=== PATIENT | female | born 1970 | race Caucasian/White ===

== ENCOUNTER → 2022-07-11 12:58 | Outpatient (BNVA) | payer OTHER, BC, SELFPAY | PROVIDERS: Visit Provider Nurse Practitioner Family | DX: S43.402A Unspecified sprain of left shoulder joint, initial encounter (principal); W19.XXXA Unspecified fall, initial encounter; Y99.0 Civilian activity done for income or pay | CPT/HCPCS: 73030 ==

== ENCOUNTER → 2022-07-25 15:44 | Outpatient (BNVA) | payer OTHER, SELFPAY | PROVIDERS: Visit Provider Specialist | DX: Y99.0 Civilian activity done for income or pay (principal); W19.XXXA Unspecified fall, initial encounter; S49.92XA Unspecified injury of left shoulder and upper arm, initial encounter | CPT/HCPCS: 73030 ==

== ENCOUNTER 2022-08-11 15:19 | Outpatient (CLI) | payer OTHER, SELFPAY ==
--- NOTE | 2022-08-11 15:15 | MR_ITS ---
WS: [id number] EXAMINATION: MR shoulder LT wo con* [id number] ORDER DATE: 08/11/2022 3:27 PM COMPARISON: None. HISTORY: shoulder injury CONTRAST: None. TECHNIQUE: Axial T2 STAR, coronal proton density fat sat, sagittal T2 fat sat, sagittal proton densit y fat sat, axial proton density fat sat, coronal T2 fat sat, and coronal T1 performed. FINDINGS: Mild degenerative arthritis AC joint with mild edema. Trace subacromial subdeltoid fluid. Mild narrow ing of the subacromial space. Distal supraspinatus and infraspinatus. Intact. Normal teres minor and subscapularis. No high-grade rotator cuff tears. Normal biceps tendon in the bicipital groove. Intra-articular biceps tendon appears intact. Normal josé miguel ne marrow signal in the glenoid and humerus. Biceps labral anchor appears intact. Glenoid labrum appe ars grossly intact. MR/MR shoulder LT wo con* [id number] IMPRESSION: 1. Mild degenerative arthritis AC joint with mild edema. 2. Trace subacromial subdeltoid fluid. 3. Rotator cuff is intact. 4. Normal biceps tendon in the bicipital groove. 5. No other acute findings.
== END 2022-08-11 15:20 | disposition home or self-care (01) ==
LOC: RAD 15:24
PROVIDERS: Visit Provider Specialist
DX: S49.92XA Unspecified injury of left shoulder and upper arm, initial encounter (principal); X58.XXXA Exposure to other specified factors, initial encounter; M19.012 Primary osteoarthritis, left shoulder; R60.0 Localized edema
CPT/HCPCS: 73221

== ENCOUNTER → 2022-08-30 08:40 | Outpatient (BNVA) | payer BC, SELFPAY | PROVIDERS: Visit Provider Podiatrist Foot & Ankle Surgery | DX: M79.671 Pain in right foot (principal); M72.2 Plantar fascial fibromatosis | CPT/HCPCS: 73630 ==

== ENCOUNTER 2022-09-16 09:45 | Outpatient (RCR) | payer OTHER, SELFPAY | END 2022-10-10 23:59 | disposition home or self-care (01) | LOC: SPT 09:45 | PROVIDERS: PCP Specialist; Visit Provider Specialist | DX: M75.02 Adhesive capsulitis of left shoulder (principal) | CPT/HCPCS: 97110; 97161 ==

== ENCOUNTER 2022-10-11 06:00 | Outpatient (RCR) | payer OTHER, SELFPAY | END 2022-11-10 23:59 | disposition home or self-care (01) | LOC: SPT 06:00 | PROVIDERS: PCP Family Medicine; Visit Provider Specialist | DX: M75.02 Adhesive capsulitis of left shoulder (principal) | CPT/HCPCS: 97110 ==

== ENCOUNTER 2022-11-11 06:00 | Outpatient (RCR) | payer OTHER, SELFPAY | END 2022-12-10 23:59 | disposition home or self-care (01) | LOC: SPT 06:00 | PROVIDERS: PCP Family Medicine; Visit Provider Specialist | DX: M75.02 Adhesive capsulitis of left shoulder (principal) | CPT/HCPCS: 97033; 97110 ==

== ENCOUNTER 2022-12-30 07:51 | Day surgery (SDC) | payer BC, SELFPAY ==
[2022-12-30 08:06] VITALS: BP 137/95; PULSE 72; RESP 16; TEMP 36.4; O2SAT 99; BMI 29.2
--- NOTE | 2022-12-30 08:18 | P.ANESASSM_ITS ---
Pre-Anesthetic Assessment Height/Weight: Height 1.6 m Weight 74.843 kg Temp Pulse Resp BP Pulse Ox O2 Del Method 97.5 F L 72 16 137/95 99 Room Air 12/30/22 08:06 12/30/22 08:06 12/30/22 08:06 12/30/22 08:06 12/30/22 08:06 12/30/22 08:06 Operation Date: 12/30/22 09:00 Proposed Procedures p 20658 egd with balloon dilation R13.10(Not Applicable) - Hossein Hernadez DO Familial anesthetic complications: none Was Beta Yohan taken within 24 hours: N/A Was Clonidine taken within 24 hours: N/A Last intake: Intake Last Liquid Date 12/29/22 Last Liquid Time 22:30 Last Solid Date 12/28/22 Last Solid Time 18:00 Social No alcohol and No tobacco Exam alert, oriented x 3, clear to auscultation bilaterally and regular rate & rhythm Airway Mallampati: Class II Dentition: full CV/HEM Hypertension GI Gastroesophageal Reflux Disease Anesthetic Plan ASA status: 2 Anesthesia: MAC Risk of > 500 ml blood loss (7ml/kg in children): No Medications/Allergies Home Medications Medication Instructions Recorded Confirmed Last Taken Type escitalopram oxalate 10 mg tablet 10 mg PO DAILY 07/25/22 12/30/22 12/29/22 H istory (Lexapro) albuterol sulfate 90 mcg/actuation 2 puff inhalation Q4H PRN 12/06/22 12/30/22 3 Weeks Ago History aerosol inhaler shortness of breath or wheezing ~12/07/22 epinephrine 0.3 mg/0.3 mL 0.3 ml IM ONCE PRN anaphylaxis 12/06/22 12/30/22 Unknown History injection, auto-injector losartan 50 mg-hydrochlorothiazide 0.5 tab PO DAILY 12/06/22 12/30/22 12/29/22 History 12.5 mg tablet valacyclovir 1 gram tablet 1,000 mg PO TID PRN shingles 12/06/22 12/30/22 Unknown History pantoprazole 40 mg tablet,delayed 40 mg PO BID 6 weeks #84 tabs 12/14/22 12/30/22 12/29/22 Rx release (Protonix) Allergies Allergy/AdvReac Type Severity Reaction Status Date / Time iodine Allergy ADR-Itching Verified 12/14/22 12:02 NSAIDS (Non-Steroidal Allergy angioedema Verified 12/14/22 12:02 Anti-Inflamma bee stings Allergy Unknown Uncoded 12/14/22 12:02 shellfish Allergy Unknown Uncoded 12/14/22 12:02 [facility] Anesthesia Medical History Angioedema nsaid induced Anxiety History of shingles Hypertension Surgical History History of breast augmentation History of endometrial ablation History of meniscectomy of right knee History of nasal septoplasty History of repair of anterior cruciate ligament of right knee Family History Mother Suicide Father No problems noted. Denies family history of Diabetes CAD (coronary artery disease) Cancer Hypertension Social History Smoking and tobacco/nicotine status: former use of tobacco/nicotine Alcohol intake: current Alcohol intake frequency: holidays/special occasions only Alcohol type: wine Substance/Drug Use: never Household members: spouse Housing: House Marital status: Number of children: 1 Number of grandchildren: 2 Highest education level completed: Associate Degree: Academic Program service: No Current occupational status: employed Current occupation: [employer] Current occupational exposures/hazards: No Pets and animals: Yes Sexually active: Yes Do you think of yourself as: Straight/Heterosexual Current gender identity: Female Special clemente needs: No Agree to transfusion: Yes Data Anesthesia Cardiac Studies: No Data to Display
[2022-12-30] MEDS: sodium chloride 0.9% 1,000 ML 30 ML IV (08:20)
--- NOTE | 2022-12-30 09:23 | W.PM.OPSUD ---
Surgery/Procedure H&P Update DATE OF PROCEDURE: December 30, 2022 DATE H&P PERFORMED: 12/14/22 H&P UPDATE INFORMATION: I have reviewed H&P completed within last 30 days, I have examined patient prior to procedure and No changes to prior documentation PLANNED PROCEDURE: Operation Date: 12/30/22 09:00 Proposed Procedures p 51903 egd with balloon dilation R13.10(Not Applicable) - Hossein Hernadez, DO
[2022-12-30 09:37] VITALS: BP 106/72; PULSE 77; RESP 18; TEMP 36.3; O2SAT 91
[2022-12-30 09:55] VITALS: BP 112/73; PULSE 62; RESP 18; O2SAT 100
--- NOTE | 2022-12-30 09:57 | ANE.PACU2 ---
Inpatient post-anesthesia follow up: Airway intact: Yes Vital signs: Temperature 97.4 F Pulse Rate 77 Respiratory Rate 18 Blood Pressure 106/72 Pulse Oximetry 91 Oxygen Delivery Me thod Room Air Oxygen Flow Rate Fraction of Inspir ed Oxygen Hydration adequate: Yes Nausea and vomiting: No Pain level: 1 Mental status: Baseline
== END 2022-12-30 10:20 | disposition home or self-care (01) ==
PROVIDERS: PCP Family Medicine; Visit Provider Surgery
DX: R13.10 Dysphagia, unspecified (principal); K22.2 Esophageal obstruction; K29.50 Unspecified chronic gastritis without bleeding; I10 Essential (primary) hypertension; K21.9 Gastro-esophageal reflux disease without esophagitis; Z87.891 Personal history of nicotine dependence
CPT/HCPCS: 43239; 43249; 88305; 88342; J2704; J7030

== ENCOUNTER 2023-01-11 12:56 | Outpatient (CLI) | payer OTHER, SELFPAY ==
--- NOTE | 2023-01-11 13:00 | IR_ITS ---
WS: [id number] LEFT SHOULDER ARTHROGRAM UNDER FLUOROSCOPY. PRIOR TO MRI EVALUATION. HISTORY: check for ligament damage COMPARISON: None available. FLUOROSCOPY TIME: 1min [id number] # of spot films: 2 Procedure, risks and complications were explained to the patient. Consent has been obtained. Under fluoroscopic guidance the skin is marked over the medial superior third of the humeral head, cl eansed with ChloraPrep and anesthetized with lidocaine. 22-gauge spinal needle is inserted to the cor merrill of the humeral head. Test injection with Omnipaque reveals the needle is appropriately positioned in the joint. A mixture of 10 cc sterile saline, 5 cc Omnipaque and 0.1 mmol gadolinium are injected under fluoroscopic guidance. Patient tolerated the joint distention well. No complications. IMPRESSION: Uncomplicated LEFT shoulder joint injection prior to MRI.
--- NOTE | 2023-01-11 13:01 | MR_ITS ---
WS: [id number] MRI LEFT SHOULDER ARTHROGRAM HISTORY: left shoulder pain COMPARISON: 08/11/2022 TECHNIQUE: Postcontrast imaging in 3 planes submitted after injection of gadolinium. T1 fat saturatio n postcontrast imaging. Contrast extravasates from the joint capsule during injection. Only 13 cc of contrast are injected. T here is obvious extravasation from the joint capsule. The axillary recess is a small caliber which is consistent with adhesive capsulitis. There is also abnormal signal in the superior labrum. Abnormal signal extends along the anterior labrum consistent with a torn superior anterior labrum. There is mild laxity of the middle glenohumeral ligament and the subscapularis tendon. No loose adonis s or fractures. IMPRESSION: 1. Small caliber axillary pouch consistent with adhesive capsulitis. Contrast extravasates from the s mall axillary recess along the subscapularis muscle. 2. Abnormal signal superior anterior labrum consistent with a labral tear.
== END 2023-01-11 12:57 | disposition home or self-care (01) ==
LOC: RAD 12:56
PROVIDERS: PCP Family Medicine; Visit Provider Specialist
DX: M75.02 Adhesive capsulitis of left shoulder (principal); R93.7 Abnormal findings on diagnostic imaging of other parts of musculoskeletal system
CPT/HCPCS: 23350; 73222; 77002; A9577; Q9966

== ENCOUNTER 2023-06-26 14:01 | Outpatient (CLI) | payer BC, SELFPAY ==
--- NOTE | 2023-06-26 14:00 | MM_ITS ---
WS: [id number] BILATERAL 3D TOMOSYNTHESIS DIGITAL DIAGNOSTIC MAMMOGRAPHY WITH CAD CLINICAL INFORMATION: breast lump present for 5 months. painful at times HISTORY: History of LEFT saline implant drainage January 2023. Prior rupture of the RIGHT implant. LEFT breast lump. COMPARISON: 2019 TECHNIQUE: Bilateral CC, MLO, and ML views. FINDINGS: The breasts are composed of heterogeneous fibroglandular density, which can limit the detection of sm all underlying mass lesions. A few incidental punctate calcifications. Interval deflation of the LEFT breast implant. Palpable marker LEFT breast in the area of concern with normal underlying parenchymal tissue. This is near the deflated breast implant. Ultrasound is pending. Slight tenting of the underlying breast imp lant ULTRASOUND BREAST LEFT TECHNIQUE: Ultrasound left breast focused area of concern. CLINICAL INFORMATION: breast lump present for 5 months. painful at times FINDINGS: Deflated LEFT breast implant is visualized. History of LEFT breast implant drainage. Ultrasound in th e area of palpable concern 6 o'clock position 7 cm from the nipple demonstrates normal underlying parenchymal tissue. No cystic or solid lesions. Deflated breast implant is just deep to this area. Slight tenting of the underlying breast implant as seen on the mammogram. IMPRESSION: MM/[place] [id number] BI-RADS: 2-Benign FOLLOW UP: 1 Year Follow-up Recommend return to annual screening mammography.
--- NOTE | 2023-06-26 14:30 | US_ITS ---
WS: [id number] BILATERAL 3D TOMOSYNTHESIS DIGITAL DIAGNOSTIC MAMMOGRAPHY WITH CAD CLINICAL INFORMATION: breast lump present for 5 months. painful at times HISTORY: History of LEFT saline implant drainage January 2023. Prior rupture of the RIGHT implant. LEFT breast lump. COMPARISON: 2019 TECHNIQUE: Bilateral CC, MLO, and ML views. FINDINGS: The breasts are composed of heterogeneous fibroglandular density, which can limit the detection of sm all underlying mass lesions. A few incidental punctate calcifications. Interval deflation of the LEFT breast implant. Palpable marker LEFT breast in the area of concern with normal underlying parenchymal tissue. This is near the deflated breast implant. Ultrasound is pending. Slight tenting of the underlying breast imp lant ULTRASOUND BREAST LEFT TECHNIQUE: Ultrasound left breast focused area of concern. CLINICAL INFORMATION: breast lump present for 5 months. painful at times FINDINGS: Deflated LEFT breast implant is visualized. History of LEFT breast implant drainage. Ultrasound in th e area of palpable concern 6 o'clock position 7 cm from the nipple demonstrates normal underlying parenchymal tissue. No cystic or solid lesions. Deflated breast implant is just deep to this area. Slight tenting of the underlying breast implant as seen on the mammogram. IMPRESSION: US/US breast LT limited* [id number] BI-RADS: 2-Benign FOLLOW UP: 1 Year Follow-up Recommend return to annual screening mammography.
== END 2023-06-26 14:02 | disposition home or self-care (01) ==
LOC: RAD 14:01
PROVIDERS: PCP Family Medicine; Visit Provider Clinical Nurse Specialist Adult Health
DX: N63.23 Unspecified lump in the left breast, lower outer quadrant (principal)
CPT/HCPCS: 76642; 77062; G0279

== ENCOUNTER → 2023-11-15 13:45 | Outpatient (BNVA) | payer BC, SELFPAY | PROVIDERS: PCP Family Medicine; Visit Provider Family Medicine | DX: Z00.00 Encounter for general adult medical examination without abnormal findings (principal) | CPT/HCPCS: 80053; 80061; 83036; 85025 ==

== ENCOUNTER 2025-01-14 08:40 | Outpatient (CLI) | payer BC, SELFPAY ==
--- NOTE | 2025-01-14 08:46 | MM_ITS ---
WS: [id number] BILATERAL 3D TOMOSYNTHESIS DIGITAL SCREENING MAMMOGRAPHY WITH CAD CLINICAL INFORMATION: SCREENING HISTORY: Screening mammogram. No current complaints. COMPARISON: 2023 TECHNIQUE: Bilateral CC and MLO views. FINDINGS: Interval implant removal The breasts are composed of heterogeneous fibroglandular density tissue, which can limit the detection of small underlying mass lesions. No suspicious mass, asymmetry, calcifications, or architectural distortion. No evidence of malignancy. MM/MM [facility] tomosynthesis [id number] IMPRESSION: DENSITY: The breasts are heterogeneously dense, which may obscure small masses. BI-RADS: 2 - Benign FOLLOW UP: 1 Year Follow-up Recommend return to annual screening mammography.
== END 2025-01-14 08:41 | disposition home or self-care (01) ==
LOC: RAD 08:41
PROVIDERS: PCP Family Medicine; Visit Provider Family Medicine
DX: Z12.31 Encounter for screening mammogram for malignant neoplasm of breast (principal); R92.333 Mammographic heterogeneous density, bilateral breasts; R92.323 Mammographic fibroglandular density, bilateral breasts
CPT/HCPCS: 77063; 77067